=== PATIENT | female | born 1955 | race Two or more races ===

== ENCOUNTER 2024-05-20 20:30 | Emergency (ER) | payer MEDICARE, OTHER ==
[~2024-05-20] VITALS: Ht 162.6 cm; Wt 87.0 kg
[2024-05-20] MEDS: HYDROcodone/acetaminophen 5mg/325mg tablet PO ONE (23:24)
[2024-05-20] MEDS ORDERED: HYDR-3965 PO (23:49)
[2024-05-21 00:01] VITALS: BP 111/78; PULSE 63; O2SAT 99
[2024-05-21 00:20] VITALS: RESP 15
[2024-05-21 00:56] VITALS: TEMP 98.4
== END 2024-05-21 00:45 | disposition home or self-care (01) ==
LOC: ER 20:30
DX: S52.601A Unspecified fracture of lower end of right ulna, initial encounter for closed fracture (principal); S52.501A Unspecified fracture of the lower end of right radius, initial encounter for closed fracture; S62.231A Other displaced fracture of base of first metacarpal bone, right hand, initial encounter for closed fracture; I10 Essential (primary) hypertension; Z79.899 Other long term (current) drug therapy; Z98.84 Bariatric surgery status; Z90.49 Acquired absence of other specified parts of digestive tract; Z90.710 Acquired absence of both cervix and uterus; W01.0XXA Fall on same level from slipping, tripping and stumbling without subsequent striking against object, initial encounter; Y93.89 Activity, other specified; Y92.89 Other specified places as the place of occurrence of the external cause; Y99.8 Other external cause status
CPT/HCPCS: 12004; 29125; 73110; 99284; A6258